=== PATIENT | male | born 1995 | race Two or more races ===

== ENCOUNTER 2021-06-13 02:58 | Emergency (ER) | payer OTHER ==
[~2021-06-13] VITALS: Ht 170.2 cm; Wt 87.1 kg
[2021-06-13 03:14] VITALS: BP 137/62
[2021-06-13] MEDS ORDERED: ACETAMINOPHEN 325 MG TABLET ONE (03:48)
[2021-06-13] MEDS ORDERED: TDAP [DIPH/PERTUSSIS/TET] 0.5 ML VIAL IM ONE ×2 (03:48→04:00)
[2021-06-13] MEDS ORDERED: ACETAMINOPHEN 325 MG TABLET PO ONE (04:00)
--- NOTE | 2021-06-13 05:45 | NUR ---
PT IS MEDICALLY CLEARED FOR BOOKING AND RELEASED UNDER THE CARE OF P OFFICERS. PT IS AMBULATORY ON STEADY GAIT AND LEFT ON CUFFS.
== END 2021-06-13 05:51 ==
LOC: ER 03:05
DX: S09.90XA Unspecified injury of head, initial encounter (principal); V49.49XA Driver injured in collision with other motor vehicles in traffic accident, initial encounter; Y93.89 Activity, other specified; Y92.413 State road as the place of occurrence of the external cause; Y99.8 Other external cause status
CPT/HCPCS: 70450-TC; 70486-TC; 90715